=== PATIENT | female | born 1945 | race Caucasian/White ===

== ENCOUNTER 2017-12-20 18:09 | Inpatient (IN) | payer MEDICARE ==
[~2017-12-20] VITALS: Ht 154.9 cm; Wt 60.3 kg
[2017-12-20] MEDS ORDERED: SODIUM CHLORIDE 0.9% 1,000ML IVBOLUS ONE ×2 (19:00→20:30)
[2017-12-20] MEDS ORDERED: SODIUM CHLORIDE FLUSH 10ML SYR IVF ONE (19:00)
[2017-12-20] MEDS ORDERED: ACETAMINOPHEN 325 MG TABLET PO ONE (19:00)
[2017-12-20] MEDS ORDERED: ACETAMINOPHEN 325 MG TABLET ONE (19:07)
[2017-12-20 19:11] LABS: BASOPHILS # (AUTO) 0.01 x10^3/uL (0-0.1); BASOPHILS % (AUTO) 0 % (0-1); EOSINOPHILS # (AUTO) 0.01 x10^3/uL (0-0.4); EOSINOPHILS % (AUTO) 0 % (1-7); LYMPHOCYTES % (AUTO) 23 % (22-44); MD NO; MEAN CORPUSCULAR HEMOGLOBIN 23.3 pg (27.0-34.8); MEAN CORPUSCULAR HGB CONC 32.3 g/dL (32.4-35.8); MEAN CORPUSCULAR VOLUME 72.3 fL (80-100); MEAN PLATELET VOLUME 8.9 fL (7.4-10.4); MONOCYTES # (AUTO) 0.77 x10^3/uL (0.2-0.8); MONOCYTES % (AUTO) 10 % (2-9); NEUTROPHILS # (AUTO) 5.15 x10^3/uL (1.8-6.8); NEUTROPHILS % (AUTO) 67 % (42-75); PLATELET COUNT 102 x10^3/uL (130-400); RED BLOOD COUNT 3.59 x10^6/uL (3.82-5.3)
[2017-12-20 19:13] LABS: INTERNATIONAL NORMALIZED RATIO 1.08 (0.93-1.1); PROTHROMBIN TIME 11.1 Seconds (9.6-11.5)
[2017-12-20 19:16] LABS: ALANINE AMINOTRANSFERASE 16 U/L (12-78); ALBUMIN 2.8 g/dL (3.4-5.0); ANION GAP 10 mmol/L (5-15); CALCIUM 7.8 mg/dL (8.5-10.1); CHLORIDE 96 mmol/L (98-107); CREATININE 0.71 mg/dL (0.55-1.02)
[2017-12-20 19:18] LABS: ALKALINE PHOSPHATASE 249 U/L (45-117); TOTAL PROTEIN 6.5 g/dL (6.4-8.2)
[2017-12-20 19:21] LABS: TROPONIN I < 0.015 ng/mL (0.000-0.045)
[2017-12-20 20:04] LABS: MICROSCOPIC INDICATED
[2017-12-20 20:22] LABS: CULTURE INDICATED? NO
[2017-12-20] MEDS ORDERED: PIPERACILLIN/TAZO/PMX 3.375GM 50 ML IV ONE (20:30)
[2017-12-20] MEDS ORDERED: PIPERACILLIN/TAZO/PMX 3.375GM 50 ML ONE (21:00)
[2017-12-20] MEDS ORDERED: OMNIPAQUE 350 MG/ML, 100ML BOTTLE ONE (21:17)
[2017-12-20] MEDS ORDERED: VANCOMYCIN PER PHARMACY MC ONE (21:30)
[2017-12-20] MEDS ORDERED: VANCOMYCIN PMX 1GM/200ML 200 ML IV ONE (21:30)
[2017-12-20] MEDS ORDERED: VANCOMYCIN PER PHARMACY MC PRN (22:30)
[2017-12-20] MEDS ORDERED: DOCUSATE 100 MG CAPSULE PO PRN (22:30)
[2017-12-20] MEDS ORDERED: ONDANSETRON ODT 4 MG PO PRN (22:30)
[2017-12-20] MEDS ORDERED: SIMV20TA3 PO (22:35)
[2017-12-20] MEDS ORDERED: SERT100T5 PO (22:35)
[2017-12-20] MEDS ORDERED: OMEP-110 PO (22:35)
[2017-12-20] MEDS ORDERED: LEVA15HF4 INH (22:35)
[2017-12-20] MEDS ORDERED: LISI1TAB5 PO (22:35)
[2017-12-20 23:05] VITALS: BP 116/69
[2017-12-20] MEDS ORDERED: PHARMACOKINETIC MONITORING MC PRN (23:30)
[2017-12-20] MEDS ORDERED: PHARMACOKINETIC CONSULTATION MC ONE (23:30)
[2017-12-20] MEDS: ACETAMINOPHEN 325 MG TABLET PO PRN (23:49)
[2017-12-20] MEDS: SODIUM CHLORIDE 0.9% 1,000 ML IV SCH (23:51)
[2017-12-21 01:18] LABS: RAPID INFLUENZA A Negative (Negative); RAPID INFLUENZA B Negative (Negative)
[2017-12-21 03:14] VITALS: BP 101/65
[2017-12-21] MEDS: PIPERACILLIN/TAZO/PMX 3.375GM 50 ML IV SCH ×2 (03:18→09:53)
[2017-12-21] MEDS: ACETAMINOPHEN 325 MG TABLET PO PRN ×2 (07:22→21:37)
[2017-12-21 07:37] VITALS: BP 107/64
[2017-12-21] MEDS: SODIUM CHLORIDE 0.9% 1,000 ML IV SCH ×2 (09:28→17:43)
[2017-12-21 12:13] VITALS: BP 116/67
[2017-12-21 13:24] LABS: ABSOLUTE RETICS # 0.085 x10^6/uL (0.5-2.5); RED BLOOD COUNT 3.3 x10^6/uL (3.82-5.3); RETICULOCYTE COUNT % 2.57 % (0.5-1.5)
[2017-12-21 18:21] VITALS: BP 124/69
[2017-12-21] MEDS ORDERED: VANCOMYCIN PMX 1GM/200ML 200 ML IV SCH (22:00)
[2017-12-22 00:33] VITALS: BP 115/71
[2017-12-22] MEDS: SODIUM CHLORIDE 0.9% 1,000 ML IV SCH ×3 (01:57→18:30)
[2017-12-22 05:50] LABS: MEAN CORPUSCULAR HEMOGLOBIN 23.4 pg (27.0-34.8); MEAN CORPUSCULAR HGB CONC 32.4 g/dL (32.4-35.8); MEAN CORPUSCULAR VOLUME 72.2 fL (80-100); MEAN PLATELET VOLUME 8.6 fL (7.4-10.4); PLATELET COUNT 83 x10^3/uL (130-400); RED CELL DISTRIBUTION WIDTH 20.6 % (9.6-15.2)
[2017-12-22 06:00] LABS: ALANINE AMINOTRANSFERASE 15 U/L (12-78); ALBUMIN 2.2 g/dL (3.4-5.0); ANION GAP 11 mmol/L (5-15); CHLORIDE 105 mmol/L (98-107)
[2017-12-22 06:03] LABS: ALKALINE PHOSPHATASE 211 U/L (45-117); TOTAL PROTEIN 5.3 g/dL (6.4-8.2)
[2017-12-22 06:26] LABS: BASOPHILS # (AUTO) 0.01 x10^3/uL (0-0.1); BASOPHILS % (AUTO) 0 % (0-1); EOSINOPHILS # (AUTO) 0.01 x10^3/uL (0-0.4); EOSINOPHILS % (AUTO) 0 % (1-7); LYMPHOCYTES # (AUTO) 1.75 x10^3/uL (1-3.4); LYMPHOCYTES % (AUTO) 30 % (22-44); MD SCAN; MONOCYTES % (AUTO) 14 % (2-9); NEUTROPHILS # (AUTO) 3.29 x10^3/uL (1.8-6.8); NEUTROPHILS % (AUTO) 56 % (42-75)
[2017-12-22 07:12] VITALS: BP 112/63
[2017-12-22 13:08] VITALS: BP 129/76
[2017-12-22 13:53] LABS: BASOPHILS # (AUTO) 0.01 x10^3/uL (0-0.1); BASOPHILS % (AUTO) 0 % (0-1); EOSINOPHILS # (AUTO) 0.01 x10^3/uL (0-0.4); EOSINOPHILS % (AUTO) 0 % (1-7); LYMPHOCYTES # (AUTO) 1.74 x10^3/uL (1-3.4); LYMPHOCYTES % (AUTO) 29 % (22-44); MD SCAN; MEAN CORPUSCULAR HEMOGLOBIN 23.1 pg (27.0-34.8); MEAN CORPUSCULAR HGB CONC 31.7 g/dL (32.4-35.8); MEAN CORPUSCULAR VOLUME 72.9 fL (80-100); MONOCYTES # (AUTO) 0.57 x10^3/uL (0.2-0.8); MONOCYTES % (AUTO) 10 % (2-9); NEUTROPHILS % (AUTO) 61 % (42-75); PLATELET COUNT 90 x10^3/uL (130-400); RED BLOOD COUNT 3.23 x10^6/uL (3.82-5.3)
[2017-12-22] MEDS ORDERED: IRON DEXTRAN COMPLEX 25 MG in SODIUM CHLORIDE 0.9% 50 ML IV ONE (15:00)
[2017-12-22] MEDS ORDERED: EPINEPHRINE 1 MG/ML, 1ML SQ ONE (15:00)
[2017-12-22] MEDS ORDERED: IRON DEXTRAN IV PER PHARMACY IV ONE (15:00)
[2017-12-22] MEDS ORDERED: EPINEPHRINE 1 MG/ML, 1ML SQ PRN (15:00)
[2017-12-22] MEDS ORDERED: IRON DEXTRAN COMPLEX 1,250 MG in SODIUM CHLORIDE 0.9% 250 ML IV ONE (16:00)
[2017-12-22 16:49] LABS: CLOSTRIDIUM DIFFICILE ANTIGEN NEGATIVE; CLOSTRIDIUM DIFFICILE TOXIN NEGATIVE (Negative)
[2017-12-22 18:19] VITALS: BP 131/72
[2017-12-23] VITALS (10 sets, daily range): BP systolic 109–142; BP diastolic 61–85
[2017-12-23] MEDS: ACETAMINOPHEN 325 MG TABLET PO PRN ×2 (00:21→14:21)
[2017-12-23 05:10] LABS: MEAN CORPUSCULAR HEMOGLOBIN 23.6 pg (27.0-34.8); MEAN CORPUSCULAR HGB CONC 32.2 g/dL (32.4-35.8); MEAN CORPUSCULAR VOLUME 73.3 fL (80-100); MEAN PLATELET VOLUME 9.1 fL (7.4-10.4); PLATELET COUNT 90 x10^3/uL (130-400); RED BLOOD COUNT 2.81 x10^6/uL (3.82-5.3)
[2017-12-23 05:16] LABS: ANION GAP 8 mmol/L (5-15); CHLORIDE 104 mmol/L (98-107); CREATININE 0.41 mg/dL (0.55-1.02)
[2017-12-23 06:25] LABS: MD YES
[2017-12-23 06:28] LABS: BAND#(MANUAL) 0.25 x10^3/uL; BANDS%(MANUAL) 4 % (0-7); LYMPH#(MANUAL) 0.62 x10^3/uL (1-3.4); LYMPHS% (MANUAL) 10 % (22-44); METAMYELOCYTES# (MANUAL) 0.12 x10^3/uL (0-0); METAMYELOCYTES% (MANUAL) 2 % (0-1); MONOS#(MANUAL) 0.99 x10^3/uL (0.3-2.7); MONOS% (MANUAL) 16 % (2-9); SEG#(MANUAL) 4.22 x10^3/uL (1.8-6.8); SEGS% (MANUAL) 68 % (42-75)
[2017-12-23 06:29] LABS: <PLATELET ESTIMATE> DECREASED; <PLT MORPHOLOGY> NORMAL PLT MORPH; <RBC MORPHOLOGY> NORMAL; ANISOCYTOSIS 2+; HYPOCHROMIA 1+; MICROCYTOSIS 1+; OVALOCYTES 1+; TEAR DROPS 1+
[2017-12-23 06:30] LABS: TARGET CELLS 1+
[2017-12-23] MEDS: SODIUM CHLORIDE 0.9% 1,000 ML IV SCH ×2 (12:07→20:28)
[2017-12-23] MEDS: SIMVASTATIN 20 MG TABLET PO SCH (20:28)
[2017-12-24] MEDS ORDERED: ALBUTEROL SULFATE 2.5 MG/3 ML NPPB PRN
[2017-12-24 01:30] VITALS: BP 110/67
[2017-12-24] MEDS ORDERED: FUROSEMIDE 20 MG/2 ML IV ONE (01:30)
[2017-12-24] MEDS: ACETAMINOPHEN 325 MG TABLET PO PRN ×2 (01:34→19:30)
[2017-12-24 02:00] LABS: MEAN CORPUSCULAR HEMOGLOBIN 24.8 pg (27.0-34.8); MEAN CORPUSCULAR HGB CONC 32.7 g/dL (32.4-35.8); MEAN CORPUSCULAR VOLUME 75.8 fL (80-100); RED BLOOD COUNT 3.25 x10^6/uL (3.82-5.3); RED CELL DISTRIBUTION WIDTH 22.4 % (9.6-15.2)
[2017-12-24 02:04] LABS: ANION GAP 11 mmol/L (5-15); CHLORIDE 102 mmol/L (98-107); CREATININE 0.49 mg/dL (0.55-1.02)
[2017-12-24 02:27] LABS: MEAN PLATELET VOLUME 9.6 fL (7.4-10.4); PLATELET COUNT 81 x10^3/uL (130-400)
[2017-12-24 02:28] LABS: MD YES
[2017-12-24 02:36] LABS: BAND#(MANUAL) 0.33 x10^3/uL; BANDS%(MANUAL) 4 % (0-7); LYMPH#(MANUAL) 1.58 x10^3/uL (1-3.4); LYMPHS% (MANUAL) 19 % (22-44); MONOS% (MANUAL) 6 % (2-9); REACTIVE LYMPHS # (MANUAL) 0.08 x10^3/uL (0-0); REACTIVE LYMPHS % (MANUAL) 1 % (0-0); SEG#(MANUAL) 5.81 x10^3/uL (1.8-6.8); SEGS% (MANUAL) 70 % (42-75)
[2017-12-24 02:37] LABS: ANISOCYTOSIS 2+; MICROCYTOSIS 1+; OVALOCYTES 1+; POLYCHROMASIA 1+
[2017-12-24] MEDS ORDERED: POTASSIUM CHLORIDE 20 MEQ TAB.ER.PRT PO ONE (02:38)
[2017-12-24 02:39] LABS: <PLATELET ESTIMATE> DECREASED; TARGET CELLS 1+; TEAR DROPS 1+
[2017-12-24 02:40] LABS: LARGE PLATELETS 1+
[2017-12-24] MEDS ORDERED: FUROSEMIDE 40 MG/4 ML ONE (02:42)
[2017-12-24] MEDS ORDERED: FUROSEMIDE 40 MG/4 ML IV ONE (03:00)
[2017-12-24 04:00] VITALS: BP 97/54
[2017-12-24] MEDS ORDERED: MAGNESIUM SULFATE PMX 4GM/100M 100 ML IV ONE (07:30)
[2017-12-24] MEDS ORDERED: POTASSIUM CHLORIDE 20 MEQ TAB.ER.PRT PO SCH (08:00)
[2017-12-24] MEDS: POTASSIUM CHLORIDE 20 MEQ TAB.ER.PRT PO SCH ×2 (08:25→17:24)
[2017-12-24] MEDS: SERTRALINE 100MG TABLET PO SCH (08:26)
[2017-12-24 09:58] LABS: FOLATE LEVEL 7.3 ng/mL (3.1-17.5)
[2017-12-24] MEDS: AMPICILLIN/SULBACTAM 3 GM in SODIUM CHLORIDE 0.9% 100 ML IV SCH ×2 (12:57→19:32)
[2017-12-24] MEDS: FERROUS SULFATE 325 MG TABLET PO SCH (17:24)
[2017-12-24] MEDS: MULTIVITAMIN 1 TABLET PO SCH (17:24)
[2017-12-24] MEDS: SIMVASTATIN 20 MG TABLET PO SCH (21:24)
[2017-12-25] MEDS: AMPICILLIN/SULBACTAM 3 GM in SODIUM CHLORIDE 0.9% 100 ML IV SCH ×4 (01:20→18:25)
[2017-12-25 04:00] VITALS: BP 98/47
[2017-12-25 04:38] LABS: MEAN CORPUSCULAR HEMOGLOBIN 24.8 pg (27.0-34.8); MEAN CORPUSCULAR HGB CONC 32.3 g/dL (32.4-35.8); MEAN CORPUSCULAR VOLUME 76.7 fL (80-100); MEAN PLATELET VOLUME 9.4 fL (7.4-10.4); PLATELET COUNT 81 x10^3/uL (130-400); RED BLOOD COUNT 3.24 x10^6/uL (3.82-5.3); RED CELL DISTRIBUTION WIDTH 23.2 % (9.6-15.2)
[2017-12-25 04:43] LABS: ANION GAP 7 mmol/L (5-15); CALCIUM 7.1 mg/dL (8.5-10.1); CHLORIDE 103 mmol/L (98-107); CREATININE 0.58 mg/dL (0.55-1.02)
[2017-12-25 05:40] LABS: MD YES
[2017-12-25 05:43] LABS: BAND#(MANUAL) 0.87 x10^3/uL; BANDS%(MANUAL) 10 % (0-7); LYMPH#(MANUAL) 1.31 x10^3/uL (1-3.4); LYMPHS% (MANUAL) 15 % (22-44); METAMYELOCYTES# (MANUAL) 0.17 x10^3/uL (0-0); METAMYELOCYTES% (MANUAL) 2 % (0-1); MONOS#(MANUAL) 0.52 x10^3/uL (0.3-2.7); MONOS% (MANUAL) 6 % (2-9); NRBC % (MANUAL) 5 % (0-1); SEG#(MANUAL) 5.83 x10^3/uL (1.8-6.8); SEGS% (MANUAL) 67 % (42-75)
[2017-12-25 05:44] LABS: ANISOCYTOSIS 2+; MICROCYTOSIS 1+; OVALOCYTES 1+; POLYCHROMASIA 1+; TARGET CELLS 1+
[2017-12-25 05:46] LABS: <PLATELET ESTIMATE> DECREASED; HYPOCHROMIA 1+; TEAR DROPS 1+
[2017-12-25] MEDS ORDERED: FUROSEMIDE 40 MG/4 ML IV ONE (08:00)
[2017-12-25] MEDS: FERROUS SULFATE 325 MG TABLET PO SCH ×2 (09:00→17:23)
[2017-12-25] MEDS: MULTIVITAMIN 1 TABLET PO SCH (09:01)
[2017-12-25] MEDS: SERTRALINE 100MG TABLET PO SCH (09:02)
[2017-12-25] MEDS: ACETAMINOPHEN 325 MG TABLET PO PRN ×2 (13:19→19:52)
[2017-12-25] MEDS: FUROSEMIDE 40 MG/4 ML IV SCH (17:25)
[2017-12-25] MEDS: SIMVASTATIN 20 MG TABLET PO SCH (20:37)
[2017-12-26] MEDS: AMPICILLIN/SULBACTAM 3 GM in SODIUM CHLORIDE 0.9% 100 ML IV SCH ×4 (01:28→19:51)
[2017-12-26 04:00] VITALS: BP 95/46
[2017-12-26 04:50] LABS: ANION GAP 10 mmol/L (5-15); CALCIUM 7.1 mg/dL (8.5-10.1); CHLORIDE 101 mmol/L (98-107)
[2017-12-26 04:58] LABS: ALANINE AMINOTRANSFERASE 25 U/L (12-78); ALKALINE PHOSPHATASE 256 U/L (45-117); BILIRUBIN,TOTAL 0.9 mg/dL (0.2-1.0); CREATININE 0.54 mg/dL (0.55-1.02); TOTAL PROTEIN 5.2 g/dL (6.4-8.2)
[2017-12-26 05:01] LABS: MEAN CORPUSCULAR HGB CONC 32.2 g/dL (32.4-35.8); MEAN CORPUSCULAR VOLUME 77.7 fL (80-100); RED BLOOD COUNT 3.02 x10^6/uL (3.82-5.3); RED CELL DISTRIBUTION WIDTH 23.9 % (9.6-15.2)
[2017-12-26 05:41] LABS: MEAN PLATELET VOLUME 9.7 fL (7.4-10.4)
[2017-12-26 05:42] LABS: MD YES; PLATELET COUNT 69 x10^3/uL (130-400)
[2017-12-26 05:43] LABS: BAND#(MANUAL) 0.23 x10^3/uL; BANDS%(MANUAL) 3 % (0-7); EOS#(MANUAL) 0.08 x10^3/uL (0.0-0.4); EOS% (MANUAL) 1 % (1-7); LYMPH#(MANUAL) 1.46 x10^3/uL (1-3.4); LYMPHS% (MANUAL) 19 % (22-44); MONOS#(MANUAL) 0.46 x10^3/uL (0.3-2.7); MONOS% (MANUAL) 6 % (2-9); NRBC % (MANUAL) 1 % (0-1); SEG#(MANUAL) 5.47 x10^3/uL (1.8-6.8); SEGS% (MANUAL) 71 % (42-75)
[2017-12-26 05:44] LABS: ANISOCYTOSIS 2+; HYPOCHROMIA 1+; MICROCYTOSIS 1+
[2017-12-26 05:45] LABS: OVALOCYTES 1+; POLYCHROMASIA 1+; TARGET CELLS 1+; TEAR DROPS 1+
[2017-12-26 05:46] LABS: <PLATELET ESTIMATE> DECREASED
[2017-12-26 05:47] LABS: <PLT MORPHOLOGY> NORMAL PLT MORPH
[2017-12-26] MEDS: FUROSEMIDE 40 MG/4 ML IV SCH ×2 (07:35→18:29)
[2017-12-26 08:50] LABS: O2 FLOW 40 L/min
[2017-12-26] MEDS: MULTIVITAMIN 1 TABLET PO SCH (08:51)
[2017-12-26] MEDS: FERROUS SULFATE 325 MG TABLET PO SCH ×2 (08:51→18:30)
[2017-12-26] MEDS: SERTRALINE 100MG TABLET PO SCH (08:51)
[2017-12-26] MEDS: ACETAMINOPHEN 325 MG TABLET PO PRN ×2 (14:54→21:20)
[2017-12-26] MEDS: SIMVASTATIN 20 MG TABLET PO SCH (19:51)
[2017-12-27] MEDS: AMPICILLIN/SULBACTAM 3 GM in SODIUM CHLORIDE 0.9% 100 ML IV SCH ×4 (01:18→18:22)
[2017-12-27 04:00] VITALS: BP 95/59
[2017-12-27 04:33] LABS: MEAN CORPUSCULAR HEMOGLOBIN 24.8 pg (27.0-34.8); MEAN CORPUSCULAR HGB CONC 31.8 g/dL (32.4-35.8); MEAN PLATELET VOLUME 9.2 fL (7.4-10.4); PLATELET COUNT 73 x10^3/uL (130-400); RED BLOOD COUNT 3.14 x10^6/uL (3.82-5.3); RED CELL DISTRIBUTION WIDTH 24.7 % (9.6-15.2)
[2017-12-27 04:38] LABS: MD YES
[2017-12-27 04:43] LABS: ALBUMIN 2.1 g/dL (3.4-5.0); ANION GAP 8 mmol/L (5-15); CALCIUM 7.4 mg/dL (8.5-10.1); CHLORIDE 99 mmol/L (98-107)
[2017-12-27 04:47] LABS: ALANINE AMINOTRANSFERASE 31 U/L (12-78); ALKALINE PHOSPHATASE 329 U/L (45-117); CREATININE 0.51 mg/dL (0.55-1.02); TOTAL PROTEIN 5.4 g/dL (6.4-8.2)
[2017-12-27 04:49] LABS: ANISOCYTOSIS 2+; BAND#(MANUAL) 0.08 x10^3/uL; BANDS%(MANUAL) 1 % (0-7); HYPOCHROMIA 1+; LYMPHS% (MANUAL) 20 % (22-44); MICROCYTOSIS 1+; MONOS% (MANUAL) 4 % (2-9); NRBC % (MANUAL) 2 % (0-1); OVALOCYTES 1+; POLYCHROMASIA 1+; SEG#(MANUAL) 5.63 x10^3/uL (1.8-6.8); SEGS% (MANUAL) 75 % (42-75)
[2017-12-27 04:50] LABS: <PLATELET ESTIMATE> DECREASED; TEAR DROPS 1+
[2017-12-27 04:51] LABS: <PLT MORPHOLOGY> NORMAL PLT MORPH; TARGET CELLS 1+
[2017-12-27 05:27] LABS: HIT RESULT NEGATIVE (NEGATIVE)
[2017-12-27] MEDS: SERTRALINE 100MG TABLET PO SCH (09:00)
[2017-12-27] MEDS: FERROUS SULFATE 325 MG TABLET PO SCH ×2 (11:14→17:30)
[2017-12-27] MEDS: MULTIVITAMIN 1 TABLET PO SCH (11:14)
[2017-12-27] MEDS: FUROSEMIDE 40 MG/4 ML IV SCH ×2 (11:16→17:30)
[2017-12-27] MEDS: ACETAMINOPHEN 325 MG TABLET PO PRN ×2 (12:12→20:44)
[2017-12-27] MEDS ORDERED: ERGOCALCIFEROL 50,000 UNIT CAPSULE PO SCH (16:00)
[2017-12-27] MEDS: SIMVASTATIN 20 MG TABLET PO SCH (20:43)
[2017-12-28] MEDS: AMPICILLIN/SULBACTAM 3 GM in SODIUM CHLORIDE 0.9% 100 ML IV SCH ×4 (01:34→20:03)
[2017-12-28 04:00] VITALS: BP 106/49
[2017-12-28 06:27] LABS: MEAN CORPUSCULAR HEMOGLOBIN 25.3 pg (27.0-34.8); MEAN CORPUSCULAR HGB CONC 31.7 g/dL (32.4-35.8); MEAN CORPUSCULAR VOLUME 79.7 fL (80-100); MEAN PLATELET VOLUME 9.1 fL (7.4-10.4); PLATELET COUNT 75 x10^3/uL (130-400); RED BLOOD COUNT 3.07 x10^6/uL (3.82-5.3); RED CELL DISTRIBUTION WIDTH 25.9 % (9.6-15.2)
[2017-12-28 06:36] LABS: CALCIUM 7.6 mg/dL (8.5-10.1); CREATININE 0.52 mg/dL (0.55-1.02)
[2017-12-28 06:41] LABS: ANION GAP 10 mmol/L (5-15); CHLORIDE 100 mmol/L (98-107)
[2017-12-28 06:50] LABS: MD YES
[2017-12-28 06:55] LABS: ANISOCYTOSIS 2+; BAND#(MANUAL) 0.47 x10^3/uL; BANDS%(MANUAL) 7 % (0-7); BASOS#(MANUAL) 0.07 x10^3/uL (0-0.1); BASOS% (MANUAL) 1 % (0-1); HYPOCHROMIA 1+; LYMPH#(MANUAL) 1.27 x10^3/uL (1-3.4); LYMPHS% (MANUAL) 19 % (22-44); MICROCYTOSIS 1+; MONOS#(MANUAL) 0.07 x10^3/uL (0.3-2.7); MONOS% (MANUAL) 1 % (2-9); NRBC % (MANUAL) 1 % (0-1); OVALOCYTES 1+; POLYCHROMASIA 1+; REACTIVE LYMPHS # (MANUAL) 0.07 x10^3/uL (0-0); REACTIVE LYMPHS % (MANUAL) 1 % (0-0); SEG#(MANUAL) 4.76 x10^3/uL (1.8-6.8); SEGS% (MANUAL) 71 % (42-75)
[2017-12-28 06:56] LABS: <PLATELET ESTIMATE> DECREASED; <PLT MORPHOLOGY> NORMAL PLT MORPH; TARGET CELLS 1+; TEAR DROPS 1+
[2017-12-28] MEDS: MULTIVITAMIN 1 TABLET PO SCH (09:20)
[2017-12-28] MEDS: FUROSEMIDE 40 MG/4 ML IV SCH ×2 (09:20→18:24)
[2017-12-28] MEDS: FERROUS SULFATE 325 MG TABLET PO SCH ×2 (09:20→18:24)
[2017-12-28] MEDS: SERTRALINE 100MG TABLET PO SCH (09:21)
[2017-12-28] MEDS: ACETAMINOPHEN 325 MG TABLET PO PRN ×2 (13:40→20:04)
[2017-12-28] MEDS: SIMVASTATIN 20 MG TABLET PO SCH (20:04)
[2017-12-29] MEDS: AMPICILLIN/SULBACTAM 3 GM in SODIUM CHLORIDE 0.9% 100 ML IV SCH ×4 (00:17→20:18)
[2017-12-29 04:00] VITALS: BP 118/57
[2017-12-29 04:47] LABS: MEAN CORPUSCULAR HEMOGLOBIN 25.1 pg (27.0-34.8); MEAN CORPUSCULAR HGB CONC 31.6 g/dL (32.4-35.8); MEAN CORPUSCULAR VOLUME 79.6 fL (80-100); MEAN PLATELET VOLUME 9.6 fL (7.4-10.4); PLATELET COUNT 73 x10^3/uL (130-400); RED BLOOD COUNT 2.96 x10^6/uL (3.82-5.3); RED CELL DISTRIBUTION WIDTH 26.3 % (9.6-15.2)
[2017-12-29 04:58] LABS: ALANINE AMINOTRANSFERASE 41 U/L (12-78); ALBUMIN 2.1 g/dL (3.4-5.0); ANION GAP 9 mmol/L (5-15); CALCIUM 7.2 mg/dL (8.5-10.1); CHLORIDE 97 mmol/L (98-107)
[2017-12-29 05:00] LABS: ALKALINE PHOSPHATASE 379 U/L (45-117); BILIRUBIN,TOTAL 0.8 mg/dL (0.2-1.0); TOTAL PROTEIN 5.3 g/dL (6.4-8.2)
[2017-12-29 05:03] LABS: MD YES
[2017-12-29 05:05] LABS: BAND#(MANUAL) 0.21 x10^3/uL; BANDS%(MANUAL) 3 % (0-7); EOS#(MANUAL) 0.07 x10^3/uL (0.0-0.4); EOS% (MANUAL) 1 % (1-7); LYMPH#(MANUAL) 1.52 x10^3/uL (1-3.4); LYMPHS% (MANUAL) 22 % (22-44); MONOS#(MANUAL) 0.21 x10^3/uL (0.3-2.7); MONOS% (MANUAL) 3 % (2-9); NRBC % (MANUAL) 1 % (0-1); SEGS% (MANUAL) 71 % (42-75)
[2017-12-29 05:06] LABS: ANISOCYTOSIS 2+; HYPOCHROMIA 1+; MICROCYTOSIS 1+; OVALOCYTES 1+; POLYCHROMASIA 1+; TARGET CELLS 1+
[2017-12-29 05:07] LABS: <PLATELET ESTIMATE> DECREASED; <PLT MORPHOLOGY> NORMAL PLT MORPH
[2017-12-29] MEDS: SERTRALINE 100MG TABLET PO SCH (09:00)
[2017-12-29] MEDS: FUROSEMIDE 40 MG/4 ML IV SCH ×2 (09:13→18:10)
[2017-12-29] MEDS: FERROUS SULFATE 325 MG TABLET PO SCH ×2 (09:14→18:10)
[2017-12-29] MEDS: ACETAMINOPHEN 325 MG TABLET PO PRN ×3 (09:16→20:29)
[2017-12-29] MEDS: MULTIVITAMIN 1 TABLET PO SCH (09:16)
[2017-12-29] MEDS: ALBUTEROL SULFATE 2.5 MG/3 ML NPPB SCH ×2 (16:15→21:16)
[2017-12-29] MEDS: SIMVASTATIN 20 MG TABLET PO SCH (20:29)
[2017-12-30] MEDS: AMPICILLIN/SULBACTAM 3 GM in SODIUM CHLORIDE 0.9% 100 ML IV SCH ×3 (01:37→13:20)
[2017-12-30 04:00] VITALS: BP 103/61
[2017-12-30] MEDS: ACETAMINOPHEN 325 MG TABLET PO PRN ×2 (04:22→11:48)
[2017-12-30 04:55] LABS: ALANINE AMINOTRANSFERASE 39 U/L (12-78); ALBUMIN 2.1 g/dL (3.4-5.0); ANION GAP 8 mmol/L (5-15); CHLORIDE 96 mmol/L (98-107); CREATININE 0.62 mg/dL (0.55-1.02)
[2017-12-30 04:57] LABS: ALKALINE PHOSPHATASE 388 U/L (45-117); BILIRUBIN,TOTAL 0.9 mg/dL (0.2-1.0); TOTAL PROTEIN 5.6 g/dL (6.4-8.2)
[2017-12-30 05:52] LABS: MEAN CORPUSCULAR HEMOGLOBIN 25.5 pg (27.0-34.8); MEAN CORPUSCULAR HGB CONC 31.6 g/dL (32.4-35.8); MEAN CORPUSCULAR VOLUME 80.7 fL (80-100); MEAN PLATELET VOLUME 9.6 fL (7.4-10.4); PLATELET COUNT 81 x10^3/uL (130-400); RED BLOOD COUNT 3.05 x10^6/uL (3.82-5.3); RED CELL DISTRIBUTION WIDTH 26.5 % (9.6-15.2)
[2017-12-30 06:19] LABS: MD YES
[2017-12-30 06:38] LABS: ANISOCYTOSIS 2+; LYMPH#(MANUAL) 1.85 x10^3/uL (1-3.4); LYMPHS% (MANUAL) 24 % (22-44); METAMYELOCYTES# (MANUAL) 0.15 x10^3/uL (0-0); METAMYELOCYTES% (MANUAL) 2 % (0-1); MONOS#(MANUAL) 0.31 x10^3/uL (0.3-2.7); MONOS% (MANUAL) 4 % (2-9); SEG#(MANUAL) 5.39 x10^3/uL (1.8-6.8); SEGS% (MANUAL) 70 % (42-75)
[2017-12-30 06:39] LABS: <PLATELET ESTIMATE> DECREASED; <PLT MORPHOLOGY> NORMAL PLT MORPH; MICROCYTOSIS 1+; POLYCHROMASIA 1+; TOXIC GRAN 1+
[2017-12-30] MEDS: ALBUTEROL SULFATE 2.5 MG/3 ML NPPB SCH ×3 (07:00→13:44)
[2017-12-30] MEDS: MULTIVITAMIN 1 TABLET PO SCH (08:01)
[2017-12-30] MEDS: FERROUS SULFATE 325 MG TABLET PO SCH ×2 (08:01→17:26)
[2017-12-30] MEDS: FUROSEMIDE 40 MG/4 ML IV SCH ×2 (08:01→17:00)
[2017-12-30] MEDS ORDERED: SERTRALINE 100MG TABLET PO SCH (09:00)
[2017-12-30] MEDS ORDERED: SERT100T5 PO (16:41)
[2017-12-30] MEDS ORDERED: FURO10VI37 IV (16:41)
[2017-12-30] MEDS ORDERED: ERGO500017 PO (16:41)
[2017-12-30] MEDS ORDERED: Unasyn IVPB (16:49)
== END 2017-12-30 17:49 | DRG 871 ==
LOC: ED 18:58 → EDIP 21:44 → 3NE 22:56 → CCU 12-24 01:58
PROVIDERS: ADMIT Hospitalist; ATTEND Hospitalist
PROC: 0T9B70Z Drainage of Bladder with Drainage Device, Via Natural or Artificial Opening (ICD-10-PCS; principal; 2017-12-20)
PROC: 30233N1 Transfusion of Nonautologous Red Blood Cells into Peripheral Vein, Percutaneous Approach (ICD-10-PCS; 2017-12-23)
DX: A41.9 Sepsis, unspecified organism (principal); J96.21 Acute and chronic respiratory failure with hypoxia; J69.0 Pneumonitis due to inhalation of food and vomit; E43 Unspecified severe protein-calorie malnutrition; E87.3 Alkalosis; D69.6 Thrombocytopenia, unspecified; E83.51 Hypocalcemia; I11.0 Hypertensive heart disease with heart failure; I50.9 Heart failure, unspecified; Z99.81 Dependence on supplemental oxygen; F33.0 Major depressive disorder, recurrent, mild; J98.11 Atelectasis; D63.8 Anemia in other chronic diseases classified elsewhere; D50.9 Iron deficiency anemia, unspecified; E78.5 Hyperlipidemia, unspecified; F41.9 Anxiety disorder, unspecified; J06.9 Acute upper respiratory infection, unspecified; J44.9 Chronic obstructive pulmonary disease, unspecified; K44.9 Diaphragmatic hernia without obstruction or gangrene; K76.0 Fatty (change of) liver, not elsewhere classified; R16.1 Splenomegaly, not elsewhere classified; Z51.5 Encounter for palliative care; Z66 Do not resuscitate; Z82.49 Family history of ischemic heart disease and other diseases of the circulatory system; Z68.27 Body mass index [BMI] 27.0-27.9, adult; Z68.25 Body mass index [BMI] 25.0-25.9, adult
CPT/HCPCS: 36415; 36600; 71045; 71275; 76700; 80048; 80053; 80074; 81001; 82274; 82306; 82607; 82728; 82746; 82803; 83540; 83550; 83605; 83735; 84145; 84484; 85014; 85018; 85025; 85045; 85610; 85730; 86022; 86850; 86900; 86923; 87040; 87081; 87324; 87400; 93005; 94640; 96361; 96365; 96368; J0295; J1750; J1940; J2543; J3370; J7613; Q9967; J3475; J7030; J7050; P9016